=== PATIENT | female | born 1945 | race Caucasian/White ===

== ENCOUNTER → 2016-12-23 | Outpatient (CLI) | payer MEDICARE, BC ==
[~2016-12-23] MED LIST: CIPRO 500MG TA500 MG PO; ESTRADIOL0.5 MG PO
[2016-12-23 11:31] LABS: BILIRUBIN, INDIRECT 0.39 mg/dL (0-0.9); BUN 20 mg/dL (7-18)
[2016-12-23 11:40] LABS: GFR (ESTIMATED) 55 ML/MIN (59-)
== END ==
LOC: LAB 10:12
PROVIDERS: Family Medicine
DX: K74.5 Biliary cirrhosis, unspecified (principal)

== ENCOUNTER 2017-05-04 13:14 | Emergency (ER) | payer MEDICARE, BC ==
[~2017-05-04] VITALS: Ht 167.6 cm; Wt 68.0 kg
--- OUTSIDE RECORDS SUMMARY | 2017-05-04 13:19 | External Medical Summary Rpt ---
Author Author DANTE Rhoades, [employer] Address Unknown Phone Unavailable Results Cyclosporine [Mass/volume] in Blood Observa Value Referen Units Interpr Notes Date tion ce etation Range Cyclospor 100 - 400 mcg/mL Low THERAPEUT Dec 23 ine IC:RENAL 2017 [Mass/vol TRANSPLAN 10:13 AM ume] in T Blood 100 - 250LIVER TRANSPLAN T 100 - 400CARDIA C TRANSPLAN T 100 - 400BONE MARROW TRANSPLAN T 200 - 300 Hepatic function 2000 panel in Serum or Plasma Observa Value Referen Units Interpr Notes Date tion ce etation Range Alkaline 46 - 116 U/L Normal No Dec 23 phosphata informati 2017 se on in 10:13 AM [Enzymati source c data activity/ volume] in Serum or Plasma Bilirubin 0.0 - 0.2 mg/dL High No Dec 23 .direct informati 2017 [Mass/vol on in 10:13 AM ume] in source Serum or data Plasma Bilirubin 0 - 0.9 mg/dL Normal No Dec 23 .indirect informati 2017 on in 10:13 AM [Mass/vol source ume] in data Serum or Plasma Bilirubin 0.2 - 1.0 mg/dL Normal No Dec 23 .total informati 2017 [Mass/vol on in 10:13 AM ume] in source Serum or data Plasma Aspartate 15 - 37 U/L Normal No Dec 23 informati 2017 aminotran on in 10:13 AM sferase source [Enzymati data c activity/ volume] in Serum or Plasma Alanine 12 - 78 U/L Normal No Dec 23 aminotran informati 2017 sferase on in 10:13 AM [Enzymati source c data activity/ volume] in Serum or Plasma Protein 6.4 - 8.2 gm/dL Normal No Dec 23 [Mass/vol informati 2017 ume] in on in 10:13 AM Serum or source Plasma data Renal function 2000 panel in Serum or Plasma Observa Value Referen Units Interpr Notes Date tion ce etation Range Albumin 3.4 - 5.0 gm/dL Normal No Dec 23 [Mass/vol informati 2017 ume] in on in 10:13 AM Serum or source Plasma data Urea 7 - 18 mg/dL High No Dec 23 nitrogen informati 2017 [Mass/vol on in 10:13 AM ume] in source Serum or data Plasma Calcium 8.5 - mg/dL Normal No Dec 23 [Mass/vol 10.1 informati 2016 ume] in on in 10:13 AM Serum or source Plasma data Chloride 98 - 107 mmoL/L Normal No Dec 23 [Moles/vo informati 2017 lume] in on in 10:13 AM Serum or source Plasma data Carbon 21.0 - mmoL/L Normal No Dec 23 dioxide, 32.0 informati 2017 total on in 10:13 AM [Moles/vo source lume] in data Serum or Plasma Creatinin 0.55 - mg/dL Normal No Dec 23 e 1.02 informati 2016 [Mass/vol on in 10:13 AM ume] in source Serum or data Plasma Estimated 59- ML/MIN Low REFERENCE Dec 23 RANGE: 2017 glomerula >60 10:13 AM r ML/MIN/1. filtratio 73 SQUARE n rate METERSIf (GF this patient is -A merican, then multiply theresult by 1.210. Glucose 74 - 106 mg/dL Normal No Dec 23 [Mass/vol informati 2016 ume] in on in 10:13 AM Serum or source Plasma data Potassium 3.5 - 5.1 mmoL/L Normal No Dec 23 inform2016 [Moles/vo on in 10:13 AM lume] in source Serum or data Plasma Sodium 136 - 145 mmoL/L Normal No Dec 23 [Moles/vo informati 2017 lume] in on in 10:13 AM Serum or source Plasma data Phosphate 2.4 - 4.9 mg/dL Normal No Dec 23 informati 2016 [Moles/vo on in 10:13 AM lume] in source Unspecifi data ed specimen
--- OUTSIDE RECORDS SUMMARY | 2017-05-04 13:19 | External Medical Summary Rpt | CCD ---
Demographics Preferred Language Portuguese Marital Status Unknown Yazidi Affiliation Unknown Race Unknown Ethnic Group Unknown Author Author DANTE Address Unknown Phone Immunization No patient found.
--- OUTSIDE RECORDS SUMMARY | 2017-05-04 13:19 | External Medical Summary Rpt | CCD ---
Author Author DANTE Address Unknown Phone Purpose Continuity of Care Document - 12-23-2016 through 2016
--- OUTSIDE RECORDS SUMMARY | 2017-05-04 13:19 | External Medical Summary Rpt | CCD ---
Demographics Preferred Language Sinhala Marital Status Unknown Spiritism Affiliation Unknown Race Unknown Ethnic Group Unknown Author Author DANTE Address Unknown Phone Immunization No patient found.
--- OUTSIDE RECORDS SUMMARY | 2017-05-04 13:19 | External Medical Summary Rpt | CCD ---
Author Author DANTE Address Unknown Phone [email or web address] Purpose Continuity of Care Document - 12-23-2016 through 2016
[2017-05-04] MEDS ORDERED: CIPRO 500MG TA500 MG PO (13:39)
[2017-05-04 13:40] LABS: URINE BILIRUBIN - DIPSTICK 1+ (NEG); URINE BLOOD 2+ (NEG)
--- NOTE | 2017-05-04 13:40 | Urgent Treatment Center Report ---
History of Present Issue Date/Time Seen by Provider 05/04/17 1331 Visit Reason Pt arrived:Walked Presenting Problem:PT C/O PAIN AND BURNING WITH URINATION SINCE YESTERDAY Location if Accident: Onset of symptoms date/time:/ or onset unknown for:MEDICAL HX UNKNOWN Have you (or family members/close friends) recently traveled outside the [place]? N If Yes, where/when: Have you had exposure to infectious disease within the past month? TB? Other? Specify: c/o dysuria w/ urination since late last night. Frequecy and hesitancy as well. No fever, aches, chills, low back pain, abdominal pain. Feels pressure in bladder. Hx of UTI but not since October she thinks. Doesn't tolerate bactrim due to autoimmune hepatitis and request cipro. Has pyridium at home but hasn't tried it. Source patient Exam Limitations no limitations ALLERGIES Coded Allergies: Sulfa (Sulfonamide Antibiotics) (Mild, 10/24/16) Home Medications Active Scripts Ciprofloxacin HCl (Cipro 500MG TAB) 500 MG PO BID #20 TAB Prov: 10/24/16 Reported Medications Estradiol 1 MG PO DAILY History Medical History General CAD? No Angina: No ND: No Hypertension? No Hyperlipidemia? No CHF? No DVT? No PE? No COPD? No Asthma? No Anemia? No GERD? No Gastric ulcers? No GI Bleed? No Hernia? No Thyroid Problems? No Hypothyroidism? No CVA? No Seizures? No Diabetes? No UTI? No Stones? No GB Disease: No Nephritic Syndrome? No Asplenia? No Hepatitis? Yes Sickle Cell Disease? No Arthritis? No Cataracts? No Glaucoma? No MRSA? No TB? No Cancer? No More? Yes Additional hx: AUTOIMMUNE HEPATITIS Immunization HX DT/Tetanus Unknown Surgical Hx Previous Surgery?Y HYSTERECTOMY Family History Family HX Diabetes No CAD No Hypertension Yes Hyperlipidemia No Cancer No TB No Social History Smoking Hx Smoker: Never Smoker Tobacco: No Packs/day 1 1/2 - 2 Packs Alcohol Alcohol: No Review of Systems All Other Systems Reviewed and Negative (as appropriate for CC) Constitutional denies fever, denies malaise Gastrointestinal see HPI, denies abdominal pain, denies nausea, denies vomiting Genitourinary see HPI, hematuria ("tiny dots twice today"). denies: vaginal discharge. Musculoskeletal see HPI Physical Exam Vital Signs Vital Signs Date Time Temp Pulse Resp B/P Pulse O2 O2 Flow FiO2 Ox Delivery Rate 05/04 1342 97.9 97 18 126/81 96 05/04 1326 97.9 97 18 126/81 96 General Appearance normal appearance, no apparent distress Respiratory Status No: respiratory distress. Cardiovascular no peripheral edema Gastrointestinal normal bowel sounds, non tender, soft, no organomegaly, no guarding, no rebound, mild suprapubic discomfort, no bladder distention Back no CVA tenderness Neurologic alert, oriented x 3 Skin normal color, warm/dry Medical Decision Making LABS/Meds/Orders Pt receiving controlled substance in ED? No Results/Orders Laboratory Tests 05/04/17 1330: Urine Color YELLOW, Urine Appearance Clear, Urine pH 6.0, Ur Specific [place] 1.025, Urine Protein 30, Urine Ketones NEGATIVE, Urine Blood 2+ H, Urine Nitrate NEGATIVE, Urine Bilirubin 1+ H, Urine Urobilinogen >=8.0 H, Ur Leukocyte Esterase 1+ H, Urine Glucose NEGATIVE Orders Procedure Date/time Status CULTURE, URINE 05/04 1338 Active SCC URINE DIPSTICK 05/04 1330 Complete Departure Departure Time of Disposition 1337 Disposition DC Home or Self Care(routine) Clinical Impression Primary Impression: UTI (urinary tract infection) Qualifiers: Urinary tract infection type: site unspecified Hematuria presence: with hematuria Qualified Code: N39.0 - Urinary tract infection, site not specified Condition STABLE Referrals Aly MELENDEZ,Tano Gan * Be SURE to follow up anytime for new or worsening symptoms, AND in 48 hours for urine culture results AND in 10-14 days to repeat UA and ensure infection resolved and blood no longer present. Patient Instructions DI for Hematuria, DI for Urinary Tract Infection (UTI) Additional Instructions * increase fluids, Water and NOT soda or tea * Start antibiotic immediately and be sure to take as ordered for the FULL length of time although you should start to see improvement over the next 48 hours. *Pt reports she has pyridium at home but hasn't taken it yet * pyridium as needed. Remember this will turn your urine ORANGE, this is normal but will stain whatever it gets on. this includes tears and contacts. Try not to wear contacts due to risk of staining orange. * You should not need the pyridium longer than 48 hours. If so, follow up with primary care to review urine culture and ensure antibiotic is adequate * Be SURE to follow up anytime for new or worsening symptoms, AND in 48 hours for urine culture results AND in 10-14 days to repeat UA and ensure infection resolved and blood no longer present. * Be sure to let your PCP (or whoever you follow up with) know we sent urine culture so they can request records and ensure you are on the appropriate antibiotic if you are not getting better or getting worse!!! Discharge Counseling Counseled pt/family regarding diagnosis, test results, medications/RX, home care, follow up needs Prescriptions Current Visit Scripts Ciprofloxacin HCl (Cipro 500MG TAB) 500 MG PO BID #14 TAB at 1613
[2017-05-04 13:42] VITALS: BP 126/81
== END 2017-05-04 13:42 | disposition home or self-care (01) ==
LOC: UTC 13:14
PROVIDERS: Nurse Practitioner Family
DX: N39.0 Urinary tract infection, site not specified (principal)

== ENCOUNTER → 2017-05-25 | Outpatient (CLI) | payer MEDICARE, BC ==
[2017-05-25 14:46] LABS: BUN 19 mg/dL (7-18)
[2017-05-25 14:55] LABS: GFR (ESTIMATED) 49 ML/MIN (59-)
== END ==
LOC: LAB 13:36
PROVIDERS: Emergency Medicine
DX: I10 Essential (primary) hypertension (principal); E78.5 Hyperlipidemia, unspecified